=== PATIENT | female | born 1995 | race Caucasian/White ===

== ENCOUNTER 2020-06-16 06:27 | Observation (INO) | payer OTHER, SELFPAY ==
--- NOTE | 2020-06-16 08:35 | OBADM ---
This patient, Rosaline Cota, admitted to the OB room Labor/Delivery/Recovery 106 for observation. Patient/family oriented to hospital policies and general routines including ID bracelet, bed and alarms, visiting hours, pain management, procedures, bathroom and other care routines, personal items, smoking policy, room service/diet, and visiting hours. Patient/Family are encouraged to report perceived risks to care and to ask questions if they do not understand what they are told or what they should do.
--- NOTE | 2020-07-07 19:50 | PM.OBTRLD ---
OB - Triage/Final Diagnosis Visit Information Comments/Additional reasons for admission: I have assessed the risk for this patient, Rosaline Cota, and determined that she would benefit from observation care. Final Diagnosis (1) False labor: Code(s): O47.9 - False labor, unspecified Status: Acute
== END 2020-06-16 08:12 | disposition home or self-care (01) ==
PROVIDERS: Admitting Provider Obstetrics & Gynecology; PCP Physician Assistant; Visit Provider Obstetrics & Gynecology
DX: O47.1 False labor at or after 37 completed weeks of gestation (principal); Z3A.38 38 weeks gestation of pregnancy
CPT/HCPCS: G0378; G0379

== ENCOUNTER 2020-06-25 16:05 | Inpatient (IN) | payer OTHER, SELFPAY ==
[2020-06-25 16:25] VITALS: BMI 36.9
[2020-06-25 16:30] VITALS: TEMP 37
[2020-06-25 16:35] VITALS: BP 125/75; PULSE 92
[2020-06-25] MEDS: DINOPROSTONE 10 MG VAG INSERT VAGINAL (16:49)
[2020-06-25 16:58] LABS: Basophils Percent Auto 0.2 % (0.2-1.2); Eosinophils Percent Auto 0.4 % (0-4.4); Hematocrit 33.1 % (37.0-47.0); Hemoglobin 10.3 g/dL (12.0-15.0); Immature Granulocyte Absolute 0.05 K/mm3 (0.00-0.031); Immature Granulocyte Percent A 0.5 % (0-0.5); Lymphocytes Absolute Auto 1.55 K/mm3 (0.9-3.2); Lymphocytes Percent Auto 16.6 % (18.3-44.2); Mean Corpuscular HGB Conc 31.1 g/dl (32-36); Mean Corpuscular Hemoglobin 23.3 pg (26-34); Mean Corpuscular Volume 74.9 fl (80-100); Mean Platelet Volume 10.7 fl (7.4-10.4); Monocytes Absolute Auto 0.6 K/mm3 (0.1-0.6); Monocytes Percent Auto 6.3 % (2.6-8.5); Neutrophils Absolute Auto 7.1 K/mm3 (1.3-6.7); Platelet Count Result 308 k/mm3 (150-375); Red Blood Count 4.42 M/mm3 (4.2-5.4); Red Cell Distribution Width 15.4 % (11.5-14.5); White Blood Count 9.3 K/mm3 (4.5-10.0)
[2020-06-25 18:05] VITALS: BP 121/70; PULSE 77
[2020-06-25 18:30] VITALS: BP 112/68; PULSE 78
[2020-06-25 18:51] VITALS: BP 109/64; PULSE 82
[2020-06-26] VITALS (206 sets, daily range): BP systolic 96–146; BP diastolic 47–87; PULSE 70–147; TEMP 36.2–37.2; O2SAT 83–100
[2020-06-26] MEDS: LACTATED RINGERS 1,000 ML 125 ML IV CONT ×2 (05:59→12:04)
[2020-06-26] MEDS: OXYTOCIN 30 UNITS/NS 500 ML 30 UNITS/500 ML BAG 6 UNITS IV CONT (06:02)
--- NOTE | 2020-06-26 07:00 | P.PNAN_ITS ---
Anes - Eval Pre Procedure Procedure: Labor Epidural Date/Time: 06/26/20 07:00 Surgeon: Gonzalo Preop Diagnosis: Labor Pain Pre Op Diagnosis: Induction of Labor Patient Data Age: 25 Gender: F Height: 5 ft 4 in Weight: 97.7 kg Last Vital Signs Temp 37.0 C 06/25/20 16:30 Pulse 79 06/26/20 06:30 BP 123/79 06/26/20 06:30 Allergies Allergy/AdvReac Type Severity Reaction Status Date / Time No Known Allergies Allergy Verified 06/25/20 16:26 Home Medications Medication Instructions Recorded Confirmed Type bupropion HCl [Wellbutrin SR] 100 mg PO DAILY 05/29/20 06/25/20 History prenat.vits,salma,rag-wweb-eanct 1 tablet PO DAILY 05/29/20 06/25/20 History Laboratory Tests 06/25/20 06/25/20 06/25/20 16:40 16:40 16:40 WBC 9.3 K/mm3 K/mm3 (4.5-10.0) RBC 4.42 M/mm3 M/mm3 (4.2-5.4) Hgb 10.3 g/dL L g/dL (12.0-15.0) Hct 33.1 % L % (37.0-47.0) MCV 74.9 fl L fl (80-100) MCH 23.3 pg L pg (26-34) MCHC 31.1 g/dl L g/dl (32-36) RDW 15.4 % H % (11.5-14.5) Plt Count 308 k/mm3 k/mm3 (150-375) MPV 10.7 fl H fl (7.4-10.4) Immature Gran % (Auto) 0.5 % % (0-0.5) Neut % (Auto) 76.0 % H % (45.5-73.1) Lymph % (Auto) 16.6 % L % (18.3-44.2) [place] % (Auto) 6.3 % % (2.6-8.5) Eos % (Auto) 0.4 % % (0-4.4) Baso % (Auto) 0.2 % % (0.2-1.2) Lymph # (Auto) 1.55 K/mm3 K/mm3 (0.9-3.2) [place] # (Auto) 0.6 K/mm3 K/mm3 (0.1-0.6) Eos # (Auto) 0.0 K/mm3 K/mm3 (0-0.3) Baso # (Auto) 0.0 K/mm3 K/mm3 (0.0-0.1) Abs Immat Gran (auto) 0.05 K/mm3 H K/mm3 (0.00-0.031) Absolute Neuts (auto) 7.1 K/mm3 H K/mm3 (1.3-6.7) Absolute Nucleated RBC 0.0 K/mm3 K/mm3 (0.0-0.012) Nucleated RBC % 0.0 % % (0.0-0.2) RPR Pending Blood Type A Positive Antibody Screen Negative : gestational age (JOSEF 06/26/20, ) Patient hx anesthesia problems: none Family hx anesthesia problems: none PMFSH Family History Family History (Updated 05/29/20 @ 12:48 by Quinton Gonsalves RN) Father Diabetes mellitus Sibling Asthma Schizophrenia Grandparent Leukemia Mother Anemia Social History Social History Smoking status: Never smoker Substance use: never Spiritual care concerns: No Exam Day of Procedure 06/26/20 07:00
[2020-06-26 07:27] LABS: Rapid Plasma Reagin Non-Reactive (NonReactive)
--- NOTE | 2020-06-26 07:34 | WPDOBADMIT ---
Obstetrics - Admit Note Admission Note: record reviewed. No pertinent additions to the history and/or any subsequent changes in the physical findings that are not consistent with the expected course of the were found. EIL, SVE /-2 AROM large amount of clear, odorless fluid Additions to the history and/or subsequent changes in the physical findings follow. None.
[2020-06-26] MEDS: ONDANSETRON INJ 4 MG/2 ML VIAL IV PUSH (10:42)
[2020-06-26] MEDS: miSOPROStol 200 MCG TABLET 1000 MCG (23:57)
[2020-06-27] VITALS (11 sets, daily range): BP systolic 111–137; BP diastolic 65–93; PULSE 79–114; RESP 17–18; TEMP 36.1–37.5; O2SAT 96–100
--- NOTE | 2020-06-27 00:04 | P.PCNOB_ITS ---
OB - Delivery Note Procedure Delivery date: 06/26/20 Procedure: vaginal delivery Intrapartal events: None Induction method: AROM, per misoprostol protocol and per pitocin protocol Delivery monitor: external FHT, external uterine and internal FHT Route of delivery: Laceration Description: Perineal - 1st Degree Delivery repair: vicryl Specimen: No Quantitative Blood Loss (ml): 312 Anesthesia type: Epidural Disposition: other () Complications: fundus slow to firm after placenta 1000mcg rectal cytotec and within 1-2 minutes fundus firm [place] Baby Date of : 06/26/20 Time of : 22:48 Weeks of gestation at delivery: 40 Infant gender: Male presentation: vertex position: Right Occiput Anterior Placenta delivery description: Spontaneous cord vessel description: 3 Vessels, Nuchal Cord, Loose, Reduced, Clamped/Cut and Delayed Cord Clamping Narrative: mother and baby skin to skin stable condition
[2020-06-27] MEDS: OXYTOCIN 30 UNITS/NS 500 ML 30 UNITS/500 ML BAG 6 UNITS IV CONT (00:11)
[2020-06-27] MEDS: IBUPROFEN 600 MG TABLET PO ×3 (00:58→14:33)
[2020-06-27] MEDS: BENZOCAINE 20% AER SPR (*SP) 56 GM CAN 1 SPRAY TOPICAL (00:58)
[2020-06-27] MEDS: WITCH HAZEL 40 PADS 1 PAD TOPICAL (00:59)
[2020-06-27] MEDS: LANOLIN (LANSINOH) 7.5 GM CREAM 1 APPLIC TOPICAL (00:59)
--- NOTE | 2020-06-27 02:08 | OBPPTRN ---
Patient transferred to post room #283 via wheelchair with in crib. Support person present. Oriented to unit, room, information board, rooming in, admission packet and security measures. Patient verbalizes understanding.
--- NOTE | 2020-06-27 07:50 | P.PNOB_ITS ---
OB - PN: Subj Subjective Date/time seen: 06/27/20 07:50 Patient comments: no complaints baby status: doing well OB - PN: Obj Data Labs CBC & Chem 7: 06/25/20 16:40 OB - PN A/P Plan day: 1 Plan: routine care Time Spent With Patient Time: Total time spent is greater than 50% in coordination of care (as documented) at patient's floor/unit and/or counseling patient: Time with patient: less than 15 minutes Review of Systems Review of Systems: All systems reviewed & are unremarkable except as noted in HPI and below Exam Narrative: Exam Narrative: Fundus firm and vaginal flow controlled. No lower ext redness, warmth, or edema. Negative homans. Const: General: comfortable Chest: Breast/axilla inspection: normal inspection of the breasts Resp: Effort & Inspection: normal respiratory effort Cardio: Rate: regular rate GI: GI Palp: Yes Soft to palpation Psych: Appearance: grossly normal Affect: normal affect Attitude: nicole ative Thought content: Yes Normal thought content present Judgement: Good judgement present (Psych)
--- NOTE | 2020-06-27 08:02 | PC.NURSE ---
0800-RN was informed by patient that she thought she had stepped on glass while in Labor/Delivery room. RN assessed lt. heel noting a very small red dot. Unable to see if this is glass shard or something else sharp. Heaven Landa CNM, was also informed of this and instructed RN to order Neosporin ointment and place band aid to wound in order to draw this object out. RN notified, OB Cold Working Supervisor of Labor/Delivery room and incident.
[2020-06-27] MEDS: DOCUSATE SODIUM 100 MG CAPSULE PO (08:36)
--- NOTE | 2020-06-27 08:41 | WPDANLDPN2 ---
Anes-Prog Note L&D Date/Time: 06/27/20 08:41 Comfortable throughout: labor and delivery Neuraxial method: epidural Epidural/Spinal procedure site: clean & non-tender Neuro status: Neuro function grossly intact. Cardiovascular status: normal Respiratory status: normal Airway patency: baseline Mental status: baseline Post-Op hydration status: normal Vital Signs: Last Vital Signs Temp 98.7 F 06/27/20 08:00 Pulse 85 06/27/20 08:00 Resp 18 06/27/20 08:00 BP 111/73 06/27/20 08:00 Pulse Ox 96 06/27/20 08:00 Pain score (VAS): 0/10 I/O: Intake & Output 06/26/20 06/27/20 06/27/20 23:59 07:59 15:59 Intake Total 500 Output Total 352 Balance 148 Patient feedback: Patient satisfied with anesthetic care.
--- NOTE | 2020-06-27 12:30 | PC.NURSE ---
Consulted with patient, mother reports infant has fed well using nipple since . Mother has nipple discomfort with latch during most of the feeding. Both nipples are reddened, nipple care reviewed and lanolin provided. Advised warm moist heat for 10 minutes then use gel pads provided. Reviewed instructions on application and cleaning of shield. Discussed nipple shield precautions and possible complications. Patient able to return demonstration on proper application of shield. Discussed the need to initiate pumping if infant continues to nurse with the shield. Patient verbalizes understanding. Reviewed infant feeding cues, frequencies, duration of feedings, feeding elimination flow sheet, and signs of adequate intake. Demonstrated stimulation techniques to wake infant for feeding. Assisted with to breast. Reviewed positioning/alignment in cross cradle, holding breast in U hold and guided asymmetrical latch on. Infant appeared to have difficulties with cross cradle, switched to football. Infant tends to keep tongue up and suck on his tongue now allowing nipple on top of tongue. was able to latch correctly after several attempts. nursed eagerly, with steady draws and frequent swallowing noted. Reviewed signs of a correct latch, effective nursing and suck swallow ratio. was able to maintain latch. Mother reported tenderness at times, had slipped to shallow latch. Demonstrated how to adjust latch more deeply while feeding. Mother quickly reports she can feel is latched more deeply and has minimal tenderness. Suggested to stimulate infant while feeding to keep infant awake and nursing effectively for increased stimulation and increased intake. Instructed mother to call out for RN assistance if she is unable to latch for feeding or she has discomfort with nursing. Instructed feeding should be initiated three hours from start of last feeding or if feeding cues are noted before. Mother voiced understanding of information shared.
--- NOTE | 2020-06-27 12:50 | PC.NURSE ---
Assisted with switching infant to right breast. Several attempts before was able to drop tongue and allow correct latch. Once on infant nursed eagerly with steady draws and freq swallowing.
--- NOTE | 2020-06-27 14:22 | PC.NURSE ---
Breast pump provided due to nipple shield use. Instructions given on breast pump care and usage, pumping schedule, nipple care, and collection and storage of breast milk. Encouraged [id number], breast massage and manual expression to stimulate supply. Assessed patient for correct flange size, placement and draw. Patient verbalizes and demonstrates understanding of instructions.
[2020-06-27] MEDS: NEOMYCIN/POLYMYXIN/BACITRACIN OINTMENT 15 GM TUBE 1 APPLIC TOPICAL (14:34)
[2020-06-27] MEDS: ACETAMINOPHEN 325 MG TABLET 650 MG PO (19:24)
[2020-06-28] MEDS: IBUPROFEN 600 MG TABLET PO (05:00)
[2020-06-28 05:56] LABS: Hematocrit 30.1 % (37.0-47.0); Hemoglobin 9.3 g/dL (12.0-15.0)
--- NOTE | 2020-06-28 07:45 | PM.OBPNVD ---
OB - PN: Subj Subjective Date/time seen: 06/28/20 07:45 Patient comments: no complaints baby status: doing well OB - PN: Obj Data Labs CBC & Chem 7: 06/28/20 04:53 Labs: Laboratory Results - last 24 hr 06/28/20 04:53 Hgb 9.3 L Hct 30.1 L OB - PN A/P Plan day: 2 Plan: routine care and discharge home Time Spent With Patient Time: Total time spent is greater than 50% in coordination of care (as documented) at patient's floor/unit and/or counseling patient: Review of Systems Review of Systems: All systems reviewed & are unremarkable except as noted in HPI and below Exam Const: General: cooperative Orientation/consciousness: patient oriented x3 Psych: Affect: normal affect Attitude: cooperative Thought process: Normal thought process present Thought content: Yes Normal thought content present Insight: Good insight present (Psych) Judgement: Good judgement present (Psych)
--- NOTE | 2020-06-28 07:47 | P.DS_ITS ---
DS: Admitting Diagnosis Admitting Diagnosis Admitting Diagnosis: induction of labor OB - DS: Summary OB Procedures : None OB Procedures Intrapartum: Spontaneous Vag Delivery OB Procedures: : None Time Spent with Patient Time attestation: Total time spent providing and/or coordinating discharge services: DS: Data Data Completed and Pending Labs on day of discharge: Labs from last 24 hours 06/28/20 04:53 Hgb 9.3 L Hct 30.1 L Discharge Plan Discharge Attending physician on discharge: Karlo Sánchez Discharging Clinician: Erika Rolle Patient Disposition: Home, Self-Care Activity: pelvic rest Diet: regular Patient Instructions: Antibiotic Form Stand Alone Forms: General Discharge Information Follow-up/Referrals: Erika Rolle, MAURICIOM [Certified Nurse Digital Camera Technician] - 4 Weeks Discharge Medications: Continued bupropion HCl [Wellbutrin SR] 100 mg Tablet Sustained-Release 12 Hr 100 mg PO DAILY RF: 0 prenat.vits,salma,[id number] Tablet 1 tablet PO DAILY RF: 0 Date of admission: 06/25/20 16:05 Primary Care Provider: Parent,Belen Sosa Admitting Provider: Karlo Sánchez Attending physician on admission: Karlo Sánchez Condition: Stable
[2020-06-28 08:00] VITALS: BP 115/64; PULSE 90; RESP 18; TEMP 36.9; O2SAT 99
[2020-06-28] MEDS: POLYSACCHARIDE IRON COMPLEX 150 MG CAPSULE PO (09:00)
[2020-06-28] MEDS: DOCUSATE SODIUM 100 MG CAPSULE PO (09:01)
--- NOTE | 2020-06-28 11:00 | PC.NURSE ---
Consult with pt., mother is teary and states she is very anxious with feeding. Mother states fed a few times during the night, she had difficulties with latch and keeping awake to feed. Mother is concerned infant is not getting enough with . Reviewed weight, output, jaundice are WNL and infant appears to be satisfied after feeding. Mother states she is concerned with going home and infant feeding and wishes to supplement. Discussed supplementing 15-20 mls after breastfeeds and mother can pump to offer EBM. Advised to pump if infant does not breastfeed. Parents are very happy with this plan. Mother states her plan was to pump and bottle feed once her milk was in. Mother has a Medela Pump N Style, reviewed the difference of the Medela she was pumping with here. Discussed can increase amounts as desired. Assisted with feeding, teaching parents paced feeding. Mother completed feeding. Infant was able to eagerly nipple formula. Mother is feeding as required and waking infant to feed if needed. Infant is currently meeting outcomes for weight, output, jaundice and feeding frequencies. Mother states she feels confident to continue current feeding plan discussed at home. Reviewed transition to breast milk, signs of adequate intake, and engorgement/relief. Instructed to call ICP if intake/output less than required. Reviewed regular medications mother is taking. Information provided per Monica. Reviewed community resources on the [facility] website and in the Mom/Baby guide. Information on outpatient services provided. Mother has no further questions at this time.
[2020-06-29 11:18] VITALS: BP 124/71; PULSE 93; RESP 16; TEMP 37; O2SAT 99
== END 2020-06-28 13:17 | disposition home or self-care (01) | DRG 560 ==
LOC: ANHLDR 06-26 11:33 → ANHOB2 06-27 02:10
PROVIDERS: Advanced Practice Midwife; Admitting Provider Obstetrics & Gynecology; PCP Physician Assistant; Visit Provider Obstetrics & Gynecology
DX: O69.81X0 Labor and delivery complicated by cord around neck, without compression, not applicable or unspecified (principal); Z37.0 Single live birth; Z3A.40 40 weeks gestation of pregnancy; O36.8330 Maternal care for abnormalities of the fetal heart rate or rhythm, third trimester, not applicable or unspecified; O70.0 First degree perineal laceration during delivery; O99.344 Other mental disorders complicating childbirth; F31.9 Bipolar disorder, unspecified; F41.9 Anxiety disorder, unspecified
CPT/HCPCS: 36415; 85014; 85018; 85025; 86592; 86850; 86900; 86901; A9270; J2405; J2590; J2795; J7120